=== PATIENT | male | born 1955 | race Caucasian/White ===

== ENCOUNTER 2023-03-24 11:13 | Outpatient (CLI) | payer OTHER, SELFPAY ==
--- NOTE | 2023-03-24 11:39 | ECG_ITS ---
Measurements Intervals [place] Rate: 56 P: 0 OR: 147 QRS: -19 QRSD: 145 T: 7 QT: 423 QTc: 411 Interpretive Statements SINUS BRADYCARDIA RIGHT BUNDLE BRANCH BLOCK BASELINE ARTIFACT- I, II, III, AVR, AVL, AVF ABNORMAL ECG NO PREVIOUS ECG AVAILABLE FOR COMPARISON Electronically Signed On 03-24-2023 11:50:09 FOREPART RASPER by Eugene Pepe D.O.
== END 2023-03-24 11:14 | disposition home or self-care (01) ==
LOC: ANHSURGERY 11:18
PROVIDERS: PCP Family Medicine; Visit Provider Surgery
DX: Z01.812 Encounter for preprocedural laboratory examination (principal); Z01.810 Encounter for preprocedural cardiovascular examination; K40.20 Bilateral inguinal hernia, without obstruction or gangrene, not specified as recurrent; I10 Essential (primary) hypertension; R00.1 Bradycardia, unspecified; I45.10 Unspecified right bundle-branch block
CPT/HCPCS: 36415; 86850; 86900; 86901; 93005

== ENCOUNTER 2023-03-29 01:01 | Day surgery (SDC) | payer OTHER, SELFPAY ==
--- NOTE | 2023-03-24 10:03 | PC.NURSE ---
Report to the Outpatient Waiting Room, entrance under the green pavilion located off [facility], at time __0830 on date __03/29/23 . Planned Procedure Time: _1030 . Time changes happen often and if your time is changed the preop area will call you the afternoon before. - You and your visitor will be asked to self-screen and do not enter if you have any COVID symptoms. - A mask is optional within the hospital at this time. Patients may have clear liquids (water, carbonated beverages, clear teas, apple juice) until 3 hours prior to surgery with a maximum of 20 ounces. - No food from midnight until time of surgery - Infants may have breast milk until 4 hours before surgery, formula 6 hours prior to surgery. - Children will be allowed to drink immediately following surgery. If applicable, please bring a bottle or sippy cup to assist with drinking. Juice, water, soda, and popsicles are readily available. For infants on formula, please bring formula the day of surgery. Pacifiers are allowed. Take the following medications with a SIP of water the morning of surgery: ___METOPROLOL DO NOT STOP ANY OF YOUR OTHER PRESCRIPTION MEDICATIONS PRIOR TO SURGERY ?EXCEPT THE FOLLOWING Medications to discontinue per physician ____ALL VITAMINS 3 DAYS PRE OP.LAST DOSE 03/25/23 Please no make-up, nail algerian, hairspray, perfume, deodorant, or body powder the day of surgery. No jewelry (including any body piercings) or valuables the day of surgery, leave them at home. Please take a shower or bath the night before, or the morning of, surgery with an antibacterial soap. Wear comfortable, loose fitting clothing. Children are encouraged to wear pajamas. - Jewelry must be removed prior to entering the operating room. Rings and piercings that are not removed may be cut off. - The hospital will not accept responsibility for valuables. - Please leave all valuables, including medications, at home the day of surgery. If you are going home after surgery, a licensed regional owner operator truck driver must drive you home. - NO public transportation without another adult if you receive anesthesia. - We recommend that an adult stay with you for 24 hours following discharge. - We also recommend that you do not drive, make important decision, drink alcoholic beverages, or take any drugs that were not prescribed by your health care provider for at least 24 hours after your discharge time. For Pediatric surgeries, we recommend two adults accompany the child home. Follow any additional instructions given to you from your surgeon. If you or anyone in your household have experienced Covid symptoms in the past week, please notify your surgeon or the nurse liaison at the phone number below for possible testing. Telephone instructions given to __PATIENT and asked if any additional questions and then verbalized understanding. Patient advised to call surgeon office or pre surgery nurse liaison [phone] if any additional questions.
[2023-03-24 10:22] VITALS: BMI 32.5
[2023-03-29] VITALS (7 sets, daily range): BP systolic 105–129; BP diastolic 59–79; PULSE 47–61; RESP 10–18; TEMP 36.5–36.7; O2SAT 96–100
[2023-03-29] MEDS: LACTATED RINGERS 1,000 ML 30 ML IV CONT (09:00)
[2023-03-29] MEDS: ACETAMINOPHEN 500 MG TABLET 1000 MG PO (09:15)
[2023-03-29] MEDS: KETOROLAC 15 MG/ML VIAL (*BKC) IV PUSH (09:15)
[2023-03-29] MEDS: SCOPOLAMINE 1.5 MG PATCH TRANSDERM (09:15)
--- NOTE | 2023-03-29 09:31 | WPDHPUPDATE1 ---
History and Physical Update Update Date/Time: 03/29/23 09:31 History and Physical has been reviewed, including an updated exam of the patient. There are NO changes in the patient's condition. Risks, benefits, and alternatives have been discussed and questions answered. Patient agrees to proceed with procedure.
--- NOTE | 2023-03-29 09:31 | PM.IMHP ---
H&P: HPI History of Present Illness Date/Time: 03/29/23 09:31 Chief Complaint: Bilateral inguinal hernia Narrative: This is a 67-year-old man who presents for inguinal hernia repair. He reports no changes since last seen in the office. Review of Systems Review of Systems: All systems reviewed & are unremarkable except as noted in HPI and below Constitutional: Constitutional: Denies chills, Denies fever(s), Denies headache(s) and Denies weight loss Eyes: Eyes: Denies change in vision ENT: Denies dizziness, Denies headache(s), Denies neck mass and Denies throat swelling Cardiovascular: Cardiovascular: Denies chest pain, Denies lightheadedness and Denies dyspnea Respiratory: Respiratory: Denies cough, Denies dyspnea and Denies wheezing Gastrointestinal: Gastrointestinal: Denies abdominal pain, Denies change in bowel habits, Denies nausea and Denies vomiting Genitourinary: Genitourinary: Denies hematuria and Denies dysuria Musculoskeletal: Musculoskeletal: Reports as per HPI Integumentary/Breasts: Skin/Breast: Reports as per HPI Neurologic: Denies dizziness and Denies headache(s) Allergic/Immunologic: Allergic/Immunologic: Denies throat swelling and Denies wheezing [facility] Past Medical History Medical History (Updated 02/14/23 @ 15:06 by Rita Dawson CMA) Essential (primary) hypertension Gout Left inguinal hernia Primary generalized (osteo)arthritis Surgical History Surgical History (Updated 02/14/23 @ 14:53 by Rita Dawson CMA) History of knee surgery Social History Social History (Updated 07/28/22 @ 13:14 by Jasper Nelson MA) Smoking packs per day: 1 Smoking cigarettes per day: 20.0 Years smoked: 25 Smoking pack-years: 25.00 Smoking status: Former smoker Tobacco type: cigarettes Smoking end date: 05/15/18 Alcohol intake: current Drinks per week: 2 Alcohol use details: social Substance use: never Substance use type: does not use Lack of Transportation: No Lack of Food: Never True Current Housing: I Have Housing Concerned About Future Housing: No Difficulty Paying Gas/Electric Bills: No Difficulty Paying for Meds: No Currently Unemployed: No Difficulty w/ Childcare or Family Care: No Living arrangements: with family Occupation/Education: occupation Gender identity (if verbalized by the patient): Male Sexual Orientation (if Verbalized by the Patient): Straight or Heterosexual Spiritual care concerns: No Meds Home Medications and Allergies Home Medications Medication Instructions Recorded Confirmed Type allopurinol 300 mg tablet 300 mg PO DAILY 07/28/22 03/24/23 History lisinopril 20 1 tablet PO DAILY 07/28/22 03/24/23 History mg-hydrochlorothiazide 25 mg tablet metoprolol tartrate 25 mg tablet 25 mg PO BID 07/28/22 03/24/23 History nvfaefeqebrm-esv-arxqt acid-vit 1 tablet PO DAILY 02/02/23 03/24/23 History K-lycop 400 mcg-20 mcg-370 mcg tablet (Men's 50 Plus Multivitamin) Allergies Allergy/AdvReac Type Severity Reaction Status Date / Time No Known Allergies Allergy Verified 03/24/23 09:55 Exam Const: General: no acute distress and alert Orientation/consciousness: patient oriented x3 HENMT: Head: normocephalic and atraumatic Ears: hearing grossly normal bilaterally Face/Nose/Sinus: Normal nares present Mouth: Yes Normal oral and palatal mucosa present Eyes: Periorbital: periorbital findings normal Sclera: sclerae normal EOM: EOMs intact bilaterally Neck: Neck: normal visual inspection, no lymphadenopathy and trachea midline Chest: Chest palpation & inspection: normal inspection of the chest Resp: Effort & Inspection: normal respiratory effort Auscultation: clear to auscultation bilaterally Cardio: Jugular venous distension: no JVD Rate: regular rate Rhythm: regular rhythm Heart sounds: S1 normal heart sound present and S2 normal heart sound present Peripheral pulses: Peripheral p
--- NOTE | 2023-03-29 09:55 | P.PNAN_ITS ---
Anes - Initial Pre Proc Eval Procedure: Operation Date: 03/29/23 10:30 Proposed Procedures p Laparoscopic Bilateral Inguinal Hernia Repair with Mesh, Davinci Assisted - Edy Dang DO Date/Time: 03/29/23 09:55 Surgeon: Edy Dang DO Pre Op Diagnosis: Fabián Ing Hernia Patient Data Age: 67 Gender: M Height: 1.83 m Weight: 108.9 kg Allergies Allergy/AdvReac Type Severity Reaction Status Date / Time No Known Allergies Allergy Verified 03/24/23 09:55 Home Medications Medication Instructions Recorded Confirmed Type allopurinol 300 mg tablet 300 mg PO DAILY 07/28/22 03/24/23 History lisinopril 20 1 tablet PO DAILY 07/28/22 03/24/23 History mg-hydrochlorothiazide 25 mg tablet metoprolol tartrate 25 mg tablet 25 mg PO BID 07/28/22 03/24/23 History llxekedsqqap-pmz-ctfbx acid-vit 1 tablet PO DAILY 02/02/23 03/24/23 History K-lycop 400 mcg-20 mcg-370 mcg tablet (Men's 50 Plus Multivitamin) Patient hx anesthesia problems: post op nausea/vomiting Family hx anesthesia problems: none Results Review: All pre-operative results and documents have been reviewed as part of the pre- operative evaluation. [facility] Past Medical History Medical History (Updated 02/14/23 @ 15:06 by Rita Dawson CMA) Essential (primary) hypertension Gout Left inguinal hernia Primary generalized (osteo)arthritis Surgical History Surgical History (Updated 02/14/23 @ 14:53 by Rita Dawson CMA) History of knee surgery Social History Social History (Updated 07/28/22 @ 13:14 by Jasper Nelson MA) Smoking packs per day: 1 Smoking cigarettes per day: 20.0 Years smoked: 25 Smoking pack-years: 25.00 Smoking status: Former smoker Tobacco type: cigarettes Smoking end date: 05/15/18 Alcohol intake: current Drinks per week: 2 Alcohol use details: social Substance use: never Substance use type: does not use Lack of Transportation: No Lack of Food: Never True Current Housing: I Have Housing Concerned About Future Housing: No Difficulty Paying Gas/Electric Bills: No Difficulty Paying for Meds: No Currently Unemployed: No Difficulty w/ Childcare or Family Care: No Living arrangements: with family Occupation/Education: occupation Gender identity (if verbalized by the patient): Male Sexual Orientation (if Verbalized by the Patient): Straight or Heterosexual Spiritual care concerns: No Anes - Eval Final PreProcedure Day of Procedure 03/29/23 09:55 Patient weight: obese Heart: regular rate and rhythm Lungs: clear to auscultation Airway: Mallampati scale class III Neurological: alert and oriented Last oral intake: >/= 8 hours ASA classification: III Emergent: no Anesthetic plan: proceed Anesthesia type and monitoring: general ETT and standard monitoring Results Review: All pre-operative results and documents have been reviewed as part of the pre- operative evaluation. Informed Consent: The patient's anesthetic plan and its attendant risks and benefits were discussed with the patient/family/POA. Questions were solicited and answers provided to the satisfaction of the patient/family/POA.
[2023-03-29] MEDS: ceFAZolin 2 GM/D5W 50 ML 2 GM/50 ML BAG IVPB (10:01)
[2023-03-29] MEDS: BUPIVACAINE/EPINEPHRINE 0.5% 50 ML VIAL 30 ML INFILTRATE (10:43)
--- NOTE | 2023-03-29 11:32 | W.PM.PROC2 ---
Procedure Note - Detailed Date of Procedure 03/29/23 Pre-op Diagnosis Bilateral inguinal hernia Post-op Diagnosis Same (Bilateral direct inguinal hernia) Procedure Performed Laparoscopic bilateral inguinal hernia repair with mesh, da Luis Eduardo assisted Surgeon Edy Dang DO Anesthesia General and Local (0.5% bupivacaine with epinephrine) Indications This is a 67-year-old man who presented with a left groin bulge and left groin pain with activity. The bulge has been present for several years but has recently become larger and more symptomatic. On exam he was found to have bilateral inguinal hernias with the hernia on the left larger than the right. Discussions were made with the patient about treatment options and decision was made to proceed with robotic assisted laparoscopic hernia repair with mesh. Findings Laparoscopic bilateral inguinal hernia repair was performed. The patient was found to have bilateral direct inguinal hernias. The left inguinal hernia was slightly larger than the right. A robotic transabdominal preperitoneal approach was utilized for repair. Extra-large Bard 3DMax mid mesh was placed overlying each myopectineal orifice. No specimens were obtained for pathology. Description of Procedure Procedure as well as risks, benefits, and alternatives were discussed with the patient. Written consent was obtained and placed in chart prior to procedure. Patient was brought back to surgical suite. He was placed supine on operating table. Time-out was done to confirm patient and procedure. He was then intubated by Anesthesia Department. His abdomen was prepped and draped in sterile fashion using chlorhexidine prep. 0.5% bupivacaine with epinephrine was infiltrated at each location for incision. An 8 mm incision was made in the left lateral abdomen, and a 5 mm Optiview trocar was advanced through the abdominal layers under direct visualization. Once inside the abdominal cavity, carbon dioxide insufflation was used to create a pneumoperitoneum. A camera was inserted and the abdominal cavity was inspected. The patient was placed in slight Trendelenburg position. An 8 millimeter incision was made on the right lateral abdomen and an 8 millimeter trocar was inserted under direct visualization. Another 8 millimeter incision was made just superior to the umbilicus and an 8 millimeter trocar was inserted under direct visualization. The 5 mm port was then removed and this was replaced with another 8 mm robotic port. The robotic arms were brought up to the patient's bedside and secured to the ports. The camera and instruments were inserted. I then moved over to the robotic console and took control of the camera and instruments. After careful inspection of the abdominal cavity, I began scoring the peritoneum along the left lower quadrant using scissors with electrocautery. The preperitoneal plane was entered and this was carefully dissected caudally along the inferior epigastric vessels. Careful dissection with scissors with electrocautery and blunt dissection was used to continue this dissection. I dissected far enough laterally to allow for mesh placement, and also dissected medially to identify the pubic arch and Jhoan's ligament. The hernia sac was identified and carefully dissected posteriorly. The cord contents were also identified and the peritoneum was carefully dissected far enough posteriorly to allow for mesh placement. Once an adequate pocket was created, I then placed the mesh within the preperitoneal pocket and carefully unfolded it. The mesh was centered on the hernia defect with adequate overlap circumferentially. The inferior edge of the mesh was inspected to ensure that it was far enough away from the peritoneal edge. The mesh appeared in proper position overlying the entire myopectineal orifice. The mesh was secured using 3-0 Vicryl simple interrupted sutures in Jhoan's ligament, the superior medial edge, and superior lateral
[2023-03-29] MEDS: oxyCODONE HCL (*CRX) 5 MG TAB IR PO (12:47)
== END 2023-03-29 13:24 | disposition home or self-care (01) ==
PROVIDERS: PCP Family Medicine; Visit Provider Surgery
PROC: 8E0Y4CZ Robotic Assisted Procedure of Lower Extremity, Percutaneous Endoscopic Approach (ICD-10-PCS; CPT 49650; principal; 2023-03-29 10:30)
DX: K40.20 Bilateral inguinal hernia, without obstruction or gangrene, not specified as recurrent (principal); I10 Essential (primary) hypertension; M10.9 Gout, unspecified; E66.9 Obesity, unspecified; Z68.33 Body mass index [BMI] 33.0-33.9, adult; Z87.891 Personal history of nicotine dependence
CPT/HCPCS: 49650; S2900; 36415; 86850; 86900; 86901; 93005; A9270; C1781; J0330; J0690; J1100; J1170; J1885; J2250; J2405; J2704; J3010; J7120

== ENCOUNTER 2023-09-28 07:00 | Outpatient (NON) | payer OTHER, SELFPAY | END 2023-09-28 07:01 | disposition home or self-care (01) | LOC: ANHLAB 09-29 07:23 | PROVIDERS: PCP Family Medicine; Visit Provider Internal Medicine Gastroenterology | DX: R19.5 Other fecal abnormalities (principal); D12.8 Benign neoplasm of rectum; K63.5 Polyp of colon | CPT/HCPCS: 88305 ==

== ENCOUNTER 2023-09-28 08:35 | Day surgery (SDC) | payer OTHER, SELFPAY ==
[2023-09-07 07:37] VITALS: BMI 34.3
[2023-09-07 14:02] VITALS: BMI 31.2
[2023-09-11 13:51] VITALS: BMI 31.2
[2023-09-28 10:04] VITALS: BP 131/80; PULSE 58; RESP 18; TEMP 36.9; O2SAT 98; BMI 31.4
--- NOTE | 2023-09-28 10:08 | WPDANESEPPF ---
Anes - Initial Pre Proc Eval Procedure: Operation Date: 09/28/23 11:00 Proposed Procedures p Diagnostic Colonoscopy - Daniel Gao MD Date/Time: 09/28/23 10:08 Surgeon: Daniel Gao MD Pre Op Diagnosis: Other Fecal Abnormalities Patient Data Age: 67 Gender: M Height: 1.83 m Weight: 105 kg Last Vital Signs Temp 36.9 C 09/28/23 10:04 Pulse 58 L 09/28/23 10:04 Resp 18 09/28/23 10:04 BP 131/80 09/28/23 10:04 Pulse Ox 98 09/28/23 10:04 Allergies Allergy/AdvReac Type Severity Reaction Status Date / Time No Known Allergies Allergy Verified 09/28/23 09:55 Home Medications Medication Instructions Recorded Confirmed Type allopurinol 300 mg tablet 300 mg PO DAILY 07/28/22 09/28/23 History metoprolol tartrate 25 mg tablet 25 mg PO BID 07/28/22 09/28/23 History voxzxfgtvmwh-lsp-sskbk acid-vit 1 tablet PO DAILY 02/02/23 09/28/23 History K-lycop 400 mcg-20 mcg-370 mcg tablet (Men's 50 Plus Multivitamin) lisinopril 20 See Rx Instructions .Route 07/19/23 09/28/23 Rx mg-hydrochlorothiazide 25 mg tablet .COMPLEX #90 tabs Patient hx anesthesia problems: none Family hx anesthesia problems: none Results Review: All pre-operative results and documents have been reviewed as part of the pre-operative evaluation. [facility] Past Medical History Medical History Essential (primary) hypertension Gout Hypertriglyceridemia Primary generalized (osteo)arthritis Surgical History Surgical History History of knee surgery Hx of bilateral inguinal hernia repair Laparoscopic bilateral inguinal hernia repair with mesh, da Luis Eduardo assisted on 03/29/23 Social History Social History Smoking packs per day: 1 Smoking cigarettes per day: 20.0 Years smoked: 25 Smoking pack-years: 25.00 Smoking status: Former smoker Tobacco type: cigarettes Smoking end date: 01/01/19 Alcohol intake: current Drinks per week: 2 Alcohol use details: SOCIALLY Substance use: never Substance use type: does not use Lack of Transportation: No Lack of Food: Never True Current Housing: I Have Housing Concerned About Future Housing: No Difficulty Paying Gas/Electric Bills: No Difficulty Paying for Meds: No Currently Unemployed: No Difficulty w/ Childcare or Family Care: No Living arrangements: with family Occupation/Education: occupation Gender identity (if verbalized by the patient): Male Sexual Orientation (if Verbalized by the Patient): Straight or Heterosexual Spiritual care concerns: No Anes - Eval Final PreProcedure Day of Procedure 09/28/23 10:08 Patient weight: obese Heart: regular rate and rhythm Lungs: clear to auscultation Airway: Mallampati scale class II Neurological: alert and oriented Last oral intake: >/= 8 hours ASA classification: II Emergent: no Anesthetic plan: proceed Anesthesia type and monitoring: general GIVS and standard monitoring Results Review: All pre-operative results and documents have been reviewed as part of the pre-operative evaluation. Informed Consent: The patient's anesthetic plan and its attendant risks and benefits were discussed with the patient/family/POA. Questions were solicited and answers provided to the satisfaction of the patient/family/POA.
[2023-09-28] MEDS: LACTATED RINGERS 1,000 ML 150 ML IV CONT (10:21)
--- NOTE | 2023-09-28 10:46 | PM.HPGS ---
History of Present Illness History of Present Illness Consent: Risks, benefits, and alternatives have been discussed and questions answered. Patient agrees to proceed with procedure. Chief complaint: Positive Cologuard test Narrative: James Amaro is a 67 year old male referred for colonoscopy. Patient recently had a positive Cologuard test. Patient's current weight appetite are normal. He denies abdominal pain. He has had no bleeding. Family history is noncontributory. Review of Systems Review of Systems: All systems reviewed & are unremarkable except as noted in HPI and below PMFSH Past Medical History Medical History Essential (primary) hypertension Gout Hypertriglyceridemia Primary generalized (osteo)arthritis Surgical History Surgical History History of knee surgery Hx of bilateral inguinal hernia repair Laparoscopic bilateral inguinal hernia repair with mesh, da Luis Eduardo assisted on 03/29/23 Social History Social History Smoking packs per day: 1 Smoking cigarettes per day: 20.0 Years smoked: 25 Smoking pack-years: 25.00 Smoking status: Former smoker Tobacco type: cigarettes Smoking end date: 05/15/18 Alcohol intake: current Drinks per week: 2 Alcohol use details: SOCIALLY Substance use: never Substance use type: does not use Lack of Transportation: No Lack of Food: Never True Current Housing: I Have Housing Concerned About Future Housing: No Difficulty Paying Gas/Electric Bills: No Difficulty Paying for Meds: No Currently Unemployed: No Difficulty w/ Childcare or Family Care: No Living arrangements: with family Occupation/Education: occupation Gender identity (if verbalized by the patient): Male Sexual Orientation (if Verbalized by the Patient): Straight or Heterosexual Spiritual care concerns: No Meds Home Medications and Allergies Home Medications Medication Instructions Recorded Confirmed Type allopurinol 300 mg tablet 300 mg PO DAILY 07/28/22 09/28/23 History metoprolol tartrate 25 mg tablet 25 mg PO BID 07/28/22 09/28/23 History kdiagoyaygpg-bly-amefd acid-vit 1 tablet PO DAILY 02/02/23 09/28/23 History K-lycop 400 mcg-20 mcg-370 mcg tablet (Men's 50 Plus Multivitamin) lisinopril 20 See Rx Instructions .Route 07/19/23 09/28/23 Rx mg-hydrochlorothiazide 25 mg tablet .COMPLEX #90 tabs Allergies Allergy/AdvReac Type Severity Reaction Status Date / Time No Known Allergies Allergy Verified 09/28/23 09:55 Vital Signs Vital Signs - 24 hr 09/28/23 10:04 Temperature 98.4 F Pulse Rate 58 L Respiratory Rate 18 Blood Pressure 131/80 Pulse Oximetry 98 Exam Narrative: Physical exam reveals patient to be alert. Vital signs stable. HEENT exam is unremarkable. Is anicteric. Lungs are clear to auscultation and percussion is without murmur or extra sounds. Abdomen bowel sounds are present soft nontender with no organomegaly. Digital external rectal exam normal. Assessment and Plan Assessment and plan (1) Positive colorectal cancer screening using Cologuard test: Code(s): R19.5 - Other fecal abnormalities Status: Acute Assessment and Plan: Patient to have colonoscopy today because of positive Cologuard test recently.
[2023-09-28 11:17] VITALS: BP 107/67; PULSE 56; RESP 15; O2SAT 98
[2023-09-28 11:25] VITALS: BP 118/67; PULSE 52; RESP 15; O2SAT 97
--- NOTE | 2023-09-28 11:27 | WPDANESPN ---
Anes - Prog Note Post-Op Date/Time: 09/28/23 11:27 Cardiovascular status: normal Respiratory status: normal Airway patency: baseline Mental status: baseline Post-Op hydration status: normal Vital Signs: Last Vital Signs Temp 36.9 C 09/28/23 10:04 Pulse 56 L 09/28/23 11:17 Resp 15 09/28/23 11:17 BP 107/67 09/28/23 11:17 Pulse Ox 98 09/28/23 11:17 O2 Del Method Room Air 09/28/23 11:17 Pain Score (VAS): 0 I/O: Intake & Output 09/27/23 09/28/23 09/28/23 23:59 07:59 15:59 Intake Total 300 Balance 300 Patient Feedback: Patient satisfied with anesthetic care.
[2023-09-28 11:35] VITALS: BP 115/61; PULSE 53; RESP 14; O2SAT 99
== END 2023-09-28 11:44 | disposition home or self-care (01) ==
PROVIDERS: PCP Family Medicine; Referring Provider Family Medicine; Visit Provider Internal Medicine Gastroenterology
PROC: 0DJD8ZZ Inspection of Lower Intestinal Tract, Via Natural or Artificial Opening Endoscopic (ICD-10-PCS; CPT 45378; principal; 2023-09-28 11:00)
DX: R19.5 Other fecal abnormalities (principal); D12.5 Benign neoplasm of sigmoid colon; D12.8 Benign neoplasm of rectum; K57.30 Diverticulosis of large intestine without perforation or abscess without bleeding; K64.8 Other hemorrhoids
CPT/HCPCS: 45385

== ENCOUNTER 2024-04-17 10:56 | Outpatient (CLI) | payer OTHER, SELFPAY ==
--- NOTE | ~2024-04-17 | XR_ITS ---
Right ankle Technique: AP and lateral views were obtained. Clinical History: Pain Findings: No acute fracture or dislocation is seen. Osseous alignment is anatomic. Ankle mortise and other visualized joint spaces are preserved. Soft tissues are otherwise unremarkable. Impression: Unremarkable right ankle. Reviewed, dictated and finalized at location . [employer] Impression: Unremarkable right ankle.
== END 2024-04-17 10:57 | disposition home or self-care (01) ==
LOC: MICIMG 10:58
PROVIDERS: PCP Family Medicine; Visit Provider Family Medicine
DX: M25.571 Pain in right ankle and joints of right foot (principal)
CPT/HCPCS: 73600

== ENCOUNTER 2024-09-09 20:56 | Day surgery (SDC) | payer OTHER, SELFPAY ==
--- NOTE | ~2024-09-09 | XR_ITS ---
Clinical Indication: Food bolus PA view of the chest: Comparison: 12/17/2007 Findings: The lungs are clear, without evidence of focal consolidation or pleural effusion. Cardiome diastinal silhouette is within normal limits. Bones and soft tissues are unremarkable. Impression: Clear lungs. Reviewed, dictated and finalized at location . Impression: Clear lungs.
[2024-09-09 21:05] VITALS: BP 147/86; PULSE 73; RESP 18; TEMP 36.3; O2SAT 96
[2024-09-10] VITALS (15 sets, daily range): BP systolic 115–148; BP diastolic 62–88; PULSE 73–90; RESP 14–26; TEMP 36.3–37.2; O2SAT 95–100; BMI 30.9
[2024-09-10] MEDS: NITROGLYCERIN SL 0.4 MG TABLET SUBLINGUAL (02:52)
[2024-09-10] MEDS: ONDANSETRON INJ 4 MG/2 ML VIAL 8 MG IV PUSH (02:52)
[2024-09-10] MEDS: GLUCAGON FOR INJ 1 MG VIAL IM (03:19)
[2024-09-10 03:44] LABS: Glucose Point of Care 173 mg/dl (65-105)
--- NOTE | 2024-09-10 03:44 | ED.SKABFB ---
HPI - Skin/Abscess/Foreign Bdy General Chief complaint: Skin/Abscess/Foreign Body Stated complaint: pork steak food bolus Time Seen by Provider: 09/10/24 01:52 History of Present Illness HPI narrative: 68-year-old male presenting to the emergency department with complaint of food bolus impaction. Patient states he was eating barbecue last night when he felt something get stuck in his throat. He has been nauseous and vomiting continuously since. Not able to tolerate any intake as he feels like he is regurgitating immediately. No chest pain, abdominal pain, back pain. No fever chills. Endorses indigestion symptoms. No history of esophageal strictures or cancer or any kind of GERD aside from occasional reflux. Was otherwise in his normal state of health. Related Data Home Medications ?Medication ?Instructions ?Recorded ?Confirmed ?Last Taken ?Type jomgznasvnck-pwy-kkipe acid-vit 1 tablet PO DAILY 02/02/23 08/30/24 09/25/23 History K-lycop 400 mcg-20 mcg-370 mcg tablet (Men's 50 Plus Multivitamin) melatonin 5 mg chewable tablet 5 mg PO DAILY 08/30/24 08/30/24 Unknown History Allergies Allergy/AdvReac Type Severity Reaction Status Date / Time No Known Allergies Allergy Verified 09/09/24 21:10 Review of Systems Review of Systems: As reviewed above in HPI [facility] Past Medical History Medical History Personal history of colonic polyps Hypertriglyceridemia Primary generalized (osteo)arthritis Gout Essential (primary) hypertension Surgical History Surgical History Hx of bilateral inguinal hernia repair Laparoscopic bilateral inguinal hernia repair with mesh, da Luis Eduardo assisted on 03/29/23 History of knee surgery Social History Social History Smoking packs per day: 1 Smoking cigarettes per day: 20.0 Years smoked: 25 Smoking pack-years: 25.00 Smoking status: Former smoker Tobacco type: cigarettes Smoking end date: 05/09/18 Alcohol intake: current Drinks per week: 2 Alcohol use details: SOCIALLY Substance use: never Substance use type: does not use Do You Feel Safe in your Home?: Yes Lack of Transportation: No Lack of Food: Never True Current Housing: I Have Housing Concerned About Future Housing: No Difficulty Paying Gas/Electric Bills: No Difficulty Paying for Meds: No Currently Unemployed: No Difficulty w/ Childcare or Family Care: No Living arrangements: with family Occupation/Education: occupation Gender identity (if verbalized by the patient): Male Sexual Orientation (if Verbalized by the Patient): Straight or Heterosexual Spiritual care concerns: No Exam Narrative: GENERAL: Uncomfortable appearing and retching, answering questions and tolerating secretions HEAD: [Normocephalic, atraumatic.] EYES: [PERRLA and EOMI.] ENT: Nares clear, no rhinorrhea or epistaxis. Mucous membranes moist. NECK: Supple. CHEST: [Clear to auscultation. No respiratory distress.] HEART: [Regular rate and rhythm]. No murmur heard. [Normal peripheral pulses.] ABDOMEN: [Soft, nondistended], [nontender], [No rigidity or guarding] EXTREMITIES: Normal range of motion. [No edema.] SKIN: Warm, dry, no rash. NEURO: [No focal deficits]. Alert and oriented [x3.] PSYCH: [Normal mood and affect.] Course Vital Signs Vital signs: Vital Signs Temperature 36.3 C L 09/09/24 21:05 Pulse Rate 73 09/09/24 21:05 Respiratory Rate 18 09/09/24 21:05 Blood Pressure 147/86 H 09/09/24 21:05 Pulse Oximetry 96 09/09/24 21:05 Oxygen Delivery Room Air 09/09/24 21:05 Temperature 37.2 C 09/10/24 00:34 Pulse Rate 76 09/10/24 06:40 Respiratory Rate 22 H 09/10/24 06:40 Blood Pressure 128/77 09/10/24 06:40 Pulse Oximetry 95 09/10/24 06:40 Oxygen Delivery Room Air 09/09/24 21:05 MDM - Skin/Abscess/Foreign Bdy MDM Narrative Medical decision making narrative: 68-year-old male presenting with suspected food bolus impaction. He is otherwise well-appearing but is uncomfortable from suspected food stuck in his esophagus. He has normal vital signs, no tachycardia, fever, tachypnea. Clear breath sounds throughout. He endorses feeling like he choked on steak earlier this afternoon in the evening when he was barbecuing. Endorses vomiting several times specially quickly after trying to take any steps water. Clinically he has signs and symptoms of food bolus impaction. Upright chest x-ray was obtained which I independently reviewed and showed no acute concerns such as free air or pneumothorax. He was given a combination medications to try for symptom control including intramuscular glucagon, Zofran pre treatment, nitroglycerin solution ingestion. Patient re-evaluated after interventions and had no significant interval change. Still feeling very nauseous and tried take a sip water and immediately regurgitated it. Spoke to the on-call GI Dr. Bhatia who states that he is having an emergency at this time and cannot come to the ER. Attempting to reach out to his colleague Dr. Darby for endoscopy. Spoke to Dr. Darby who has agreed to come in and take the patient endoscopy suite. Patient will be taken from ER to endoscopy suite and likely discharged after procedure. Patient made aware of the plan and comfortable at bedside at this time. Medical Records Attestation: I reviewed the patient's medical records. Lab Data Attestation: I reviewed the patient's lab results. Labs: Lab Results 09/10/24 Range/Units 03:42 POC Capillary Glucose 173 H (65-105) mg/dl Imaging Data Attestation: I personally reviewed and interpreted this imaging study as follows: My impression: Impressions Chest X-Ray 09/10/24 06:05 Impression: Clear lungs. Discharge Plan Discharge Clinical Impression: Food impaction of esophagus Patient Disposition: Still a Patient Condition: Stable Time of Disposition: 06:49
[2024-09-10] MEDS: LACTATED RINGERS 1,000 ML 150 ML IV CONT (07:52)
--- NOTE | 2024-09-10 08:09 | P.PNAN_ITS ---
Anes - Initial Pre Proc Eval Procedure: Operation Date: 09/10/24 14:00 Proposed Procedures p Esophagogastroduodenoscopy - Thien Diamond MD Date/Time: 09/10/24 08:09 Surgeon: Thien Diamond MD Pre Op Diagnosis: pork steak food bolus Patient Data Age: 68 Gender: M Height: 1.83 m Weight: 103.5 kg Last Vital Signs Temp 97.3 F L 09/10/24 07:46 Pulse 73 09/10/24 07:46 Resp 20 09/10/24 07:46 BP 147/73 H 09/10/24 07:46 Pulse Ox 95 09/10/24 07:46 O2 Del Method Room Air 09/10/24 07:46 Allergies Allergy/AdvReac Type Severity Reaction Status Date / Time No Known Allergies Allergy Verified 09/10/24 07:40 Home Medications ?Medication ?Instructions ?Recorded ?Confirmed ?Type lwvhgqzqyxdq-sht-gohts acid-vit 1 tablet PO DAILY 02/02/23 09/10/24 History K-lycop 400 mcg-20 mcg-370 mcg tablet (Men's 50 Plus Multivitamin) allopurinol 300 mg tablet 450 mg (1.5 x 300 mg) PO DAILY 06/19/24 09/10/24 Rx #135 tabs lisinopril 20 See Rx Instructions .Route 07/07/24 09/10/24 Rx mg-hydrochlorothiazide 25 mg tablet .COMPLEX #90 tabs colchicine 0.6 mg tablet 0.6 mg PO DAILY #90 tabs 08/30/24 09/10/24 Rx melatonin 5 mg chewable tablet 5 mg PO DAILY 08/30/24 09/10/24 History metoprolol tartrate 25 mg tablet 25 mg PO BID #180 tabs 08/30/24 09/10/24 Rx rosuvastatin 10 mg tablet 10 mg PO DAILY #100 tabs 09/03/24 09/10/24 Rx Laboratory Tests 09/10/24 03:42 POC Capillary Glucose 173 H mg/dl (65-105) Patient hx anesthesia problems: none Family hx anesthesia problems: none Results Review: All pre-operative results and documents have been reviewed as part of the pre- operative evaluation. [facility] Past Medical History Medical History Personal history of colonic polyps Hypertriglyceridemia Primary generalized (osteo)arthritis Gout Essential (primary) hypertension Surgical History Surgical History Hx of bilateral inguinal hernia repair Laparoscopic bilateral inguinal hernia repair with mesh, da Luis Eduardo assisted on 03/29/23 History of knee surgery Social History Social History Smoking packs per day: 1 Smoking cigarettes per day: 20.0 Years smoked: 25 Smoking pack-years: 25.00 Smoking status: Former smoker Tobacco type: cigarettes Smoking end date: 05/09/18 Alcohol intake: current Drinks per week: 2 Alcohol use details: SOCIALLY Substance use: never Substance use type: does not use Do You Feel Safe in your Home?: Yes Lack of Transportation: No Lack of Food: Never True Current Housing: I Have Housing Concerned About Future Housing: No Difficulty Paying Gas/Electric Bills: No Difficulty Paying for Meds: No Currently Unemployed: No Difficulty w/ Childcare or Family Care: No Living arrangements: with family Occupation/Education: occupation Gender identity (if verbalized by the patient): Male Sexual Orientation (if Verbalized by the Patient): Straight or Heterosexual Spiritual care concerns: No Anes - Eval Final PreProcedure Day of Procedure 09/10/24 08:09 Patient weight: obese Heart: regular rate and rhythm Lungs: clear to auscultation Airway: Mallampati scale class III Neurological: alert and oriented Last oral intake: >/= 8 hours ASA classification: III Emergent: no Anesthetic plan: proceed Anesthesia type and monitoring: general ETT (RSI) and standard monitoring Results Review: All pre-operative results and documents have been reviewed as part of the pre- operative evaluation. Informed Consent: The patient's anesthetic plan and its attendant risks and benefits were discussed with the patient/family/POA. Questions were solicited and answers provided to the satisfaction of the patient/family/POA.
--- NOTE | 2024-09-10 08:11 | PM.HPGS ---
History of Present Illness History of Present Illness Consent: Risks, benefits, and alternatives have been discussed and questions answered. Patient agrees to proceed with procedure. Chief complaint: pork steak food bolus Narrative: James Amaro is a 68 year old male here with food bolus after had pork steak yesterday for dinner, never had similar problem or EGD, he is not taking ppi. Review of Systems Review of Systems: All systems reviewed & are unremarkable except as noted in HPI and below PMFSH Past Medical History Medical History Personal history of colonic polyps Hypertriglyceridemia Primary generalized (osteo)arthritis Gout Essential (primary) hypertension Surgical History Surgical History Hx of bilateral inguinal hernia repair Laparoscopic bilateral inguinal hernia repair with mesh, da Luis Eduardo assisted on 03/29/23 History of knee surgery Social History Social History Smoking packs per day: 1 Smoking cigarettes per day: 20.0 Years smoked: 25 Smoking pack-years: 25.00 Smoking status: Former smoker Tobacco type: cigarettes Smoking end date: 05/09/18 Alcohol intake: current Drinks per week: 2 Alcohol use details: SOCIALLY Substance use: never Substance use type: does not use Do You Feel Safe in your Home?: Yes Lack of Transportation: No Lack of Food: Never True Current Housing: I Have Housing Concerned About Future Housing: No Difficulty Paying Gas/Electric Bills: No Difficulty Paying for Meds: No Currently Unemployed: No Difficulty w/ Childcare or Family Care: No Living arrangements: with family Occupation/Education: occupation Gender identity (if verbalized by the patient): Male Sexual Orientation (if Verbalized by the Patient): Straight or Heterosexual Spiritual care concerns: No Meds Home Medications and Allergies Home Medications ?Medication ?Instructions ?Recorded ?Confirmed ?Type twoicgznubqz-sqr-zinal acid-vit 1 tablet PO DAILY 02/02/23 09/10/24 History K-lycop 400 mcg-20 mcg-370 mcg tablet (Men's 50 Plus Multivitamin) allopurinol 300 mg tablet 450 mg (1.5 x 300 mg) PO DAILY 06/19/24 09/10/24 Rx #135 tabs lisinopril 20 See Rx Instructions .Route 07/07/24 09/10/24 Rx mg-hydrochlorothiazide 25 mg tablet .COMPLEX #90 tabs colchicine 0.6 mg tablet 0.6 mg PO DAILY #90 tabs 08/30/24 09/10/24 Rx melatonin 5 mg chewable tablet 5 mg PO DAILY 08/30/24 09/10/24 History metoprolol tartrate 25 mg tablet 25 mg PO BID #180 tabs 08/30/24 09/10/24 Rx rosuvastatin 10 mg tablet 10 mg PO DAILY #100 tabs 09/03/24 09/10/24 Rx Allergies Allergy/AdvReac Type Severity Reaction Status Date / Time No Known Allergies Allergy Verified 09/10/24 07:40 Vital Signs Vital Signs - 24 hr 09/09/24 21:05 09/10/24 00:34 09/10/24 01:30 Temperature 97.4 F L 99 F Pulse Rate 73 75 76 Respiratory Rate 18 15 17 Blood Pressure 147/86 H 142/88 H 141/79 H Pulse Oximetry 96 96 96 Oxygen Delivery Room Air 09/10/24 02:49 09/10/24 03:30 09/10/24 04:00 Temperature Pulse Rate 73 76 80 Respiratory Rate 14 14 14 Blood Pressure 148/80 H 129/62 148/72 H Pulse Oximetry 96 96 97 Oxygen Delivery 09/10/24 05:15 09/10/24 06:40 09/10/24 07:46 Temperature 97.3 F L Pulse Rate 79 76 73 Respiratory Rate 20 22 H 20 Blood Pressure 148/72 H 128/77 147/73 H Pulse Oximetry 96 95 95 Oxygen Delivery Room Air Exam Const: General: comfortable and no acute distress Other: he is spitting saliva HENMT: Face/Nose/Sinus: Normal nares present Eyes: General: appearance normal, both eyes and all related structures Neck: Neck: no JVD Resp: Auscultation: clear to auscultation bilaterally Cardio: Rate: regular rate Rhythm: regular rhythm GI: Inspection: non-distended GI Palp: Yes Soft to palpation Skin: General skin exam: normal color Neuro: Speech: normal speech Extrem: General: normal to inspection Psych: Mental Status: mental status grossly normal Assessment and Plan Assessment and plan (1) Food impaction of esophagus: Code(s): T18.128A - Food in esophagus causing other injury, initial encounter; W44.F3XA - Food entering into or through a natural orifice, initial encounter Status: Acute Assessment and Plan: urgent egd to remove food bolus
== END 2024-09-10 09:59 | disposition home or self-care (01) ==
LOC: ANHED 09-10 02:33 → ANHENDO 09-10 05:59
PROVIDERS: Emergency Provider Student in an Organized Health Care Education/Training Program; Visit Provider Internal Medicine Gastroenterology
PROC: 0DJ08ZZ Inspection of Upper Intestinal Tract, Via Natural or Artificial Opening Endoscopic (ICD-10-PCS; CPT 43247; principal; 2024-09-10 14:00)
DX: T18.128A Food in esophagus causing other injury, initial encounter (principal); K22.2 Esophageal obstruction; K21.9 Gastro-esophageal reflux disease without esophagitis; K29.70 Gastritis, unspecified, without bleeding; I10 Essential (primary) hypertension; E78.1 Pure hyperglyceridemia; M15.0 Primary generalized (osteo)arthritis; W44.F3XA Food entering into or through a natural orifice, initial encounter; E66.9 Obesity, unspecified; Z68.30 Body mass index [BMI] 30.0-30.9, adult; Z98.890 Other specified postprocedural states; Z86.0100 Personal history of colon polyps, unspecified; Z87.891 Personal history of nicotine dependence
CPT/HCPCS: 43247; 43239; 71045; 82948; 88305; 96372; 96374; 96375; 96376; 99285; A9270; J0330; J1100; J1610; J2003; J2405; J2704; J7120

== ENCOUNTER 2024-09-19 08:19 | Outpatient (CLI) | payer OTHER, SELFPAY ==
--- NOTE | ~2024-09-19 | US_ITS ---
EXAMINATION: US aorta DATE: 09/19/2024 13:06 CDT INDICATION: Screening for cardiovascular disease. Hypertension. High cholesterol. Myocardial infarcti on. TECHNIQUE: Grayscale, color Doppler, and pulsed Doppler images of the aorta and common iliac arteries were obtained. COMPARISON: No prior studies for comparison. FINDINGS: The proximal aorta measures 2.8 cm greatest sagittal dimension. The mid aorta measures 1.2 cm greates t sagittal dimension. The distal aorta measures 1.2 cm greatest sagittal dimension. The right common internal iliac artery measures 1.1 cm. The left common iliac artery measures 1.4 cm. IMPRESSION: 1. Normal caliber aorta without evidence for aneurysm. Reviewed, dictated and finalized at location A.
== END 2024-09-19 08:20 | disposition home or self-care (01) ==
PROVIDERS: PCP Family Medicine; Visit Provider Family Medicine
DX: Z13.6 Encounter for screening for cardiovascular disorders (principal)
CPT/HCPCS: 76775

== ENCOUNTER 2024-11-28 01:03 | Day surgery (SDC) | payer OTHER, SELFPAY ==
[2024-11-14 10:51] VITALS: BMI 29.9
[2024-11-28 10:38] VITALS: BP 138/79; PULSE 61; RESP 18; TEMP 36.7; O2SAT 95; BMI 31.0
[2024-11-28] MEDS: LACTATED RINGERS 1,000 ML 150 ML IV CONT (10:56)
--- NOTE | 2024-11-28 11:19 | WPDANESEPPF ---
Anes - Initial Pre Proc Eval Procedure: Operation Date: 11/28/24 14:00 Proposed Procedures p Esophagogastroduodenoscopy - Thien Diamond MD Date/Time: 11/28/24 11:19 Surgeon: Thien Diamond MD Pre Op Diagnosis: Esophageal obstruction Patient Data Age: 68 Gender: M Height: 1.83 m Weight: 103.7 kg Last Vital Signs Temp 98.1 F 11/28/24 10:38 Pulse 61 11/28/24 10:38 Resp 18 11/28/24 10:38 BP 138/79 11/28/24 10:38 Pulse Ox 95 11/28/24 10:38 O2 Del Method Room Air 11/28/24 10:38 Allergies Allergy/AdvReac Type Severity Reaction Status Date / Time No Known Allergies Allergy Verified 11/28/24 10:37 Home Medications ?Medication ?Instructions ?Recorded ?Confirmed ?Type rsqmsnnpakkn-puy-bwlud acid-vit 1 tablet PO DAILY 02/02/23 11/28/24 History K-lycop 400 mcg-20 mcg-370 mcg tablet (Men's 50 Plus Multivitamin) allopurinol 300 mg tablet 450 mg (1.5 x 300 mg) PO DAILY 06/19/24 11/28/24 Rx #135 tabs colchicine 0.6 mg tablet 0.6 mg PO DAILY #90 tabs 08/30/24 11/28/24 Rx melatonin 5 mg chewable tablet 10 mg PO HS PRN sleep 08/30/24 11/14/24 History metoprolol tartrate 25 mg tablet 25 mg PO BID #180 tabs 08/30/24 11/28/24 Rx rosuvastatin 10 mg tablet 10 mg PO DAILY #100 tabs 09/03/24 11/28/24 Rx lisinopril 20 See Rx Instructions .Route 10/28/24 11/28/24 Rx mg-hydrochlorothiazide 25 mg tablet .COMPLEX #90 tabs Patient hx anesthesia problems: none Family hx anesthesia problems: none Results Review: All pre-operative results and documents have been reviewed as part of the pre-operative evaluation. [facility] Past Medical History Medical History Personal history of colonic polyps Hypertriglyceridemia Primary generalized (osteo)arthritis Gout Essential (primary) hypertension Surgical History Surgical History Hx of bilateral inguinal hernia repair Laparoscopic bilateral inguinal hernia repair with mesh, da Luis Eduardo assisted on 03/29/23 History of knee surgery Social History Social History Smoking packs per day: 1 Smoking cigarettes per day: 20.0 Years smoked: 25 Smoking pack-years: 25.00 Smoking status: Former smoker Tobacco type: cigarettes Smoking end date: 05/09/18 Alcohol intake: current Drinks per week: 2 Alcohol use details: SOCIALLY Substance use: never Substance use type: does not use Do You Feel Safe in your Home?: Yes Lack of Transportation: No Lack of Food: Never True Current Housing: I Have Housing Concerned About Future Housing: No Difficulty Paying Gas/Electric Bills: No Difficulty Paying for Meds: No Currently Unemployed: No Difficulty w/ Childcare or Family Care: No Living arrangements: with family Occupation/Education: occupation Gender identity (if verbalized by the patient): Male Sexual Orientation (if Verbalized by the Patient): Straight or Heterosexual Spiritual care concerns: No Anes - Eval Final PreProcedure Day of Procedure 11/28/24 11:19 Patient weight: obese Lungs: normal air movement Airway: Mallampati scale class II and special considerations (Missing lower R teeth. ) Neurological: alert and oriented Last oral intake: >/= 8 hours ASA classification: III Emergent: no Anesthetic plan: proceed Anesthesia type and monitoring: general GIVS and standard monitoring Results Review: All pre-operative results and documents have been reviewed as part of the pre-operative evaluation. HTN, hyperlipidemia, ex smoker quit 2019. Informed Consent: The patient's anesthetic plan and its attendant risks and benefits were discussed with the patient/family/POA. Questions were solicited and answers provided to the satisfaction of the patient/family/POA.
--- NOTE | 2024-11-28 11:36 | PM.HPGS ---
History of Present Illness History of Present Illness Consent: Risks, benefits, and alternatives have been discussed and questions answered. Patient agrees to proceed with procedure. Chief complaint: Esophageal obstruction Narrative: James Amaro is a 68 year old male who had food bolus 08/2024 and required urgent EGD, doing ok since and he is here for another egd to reassess if may need dilation Review of Systems Review of Systems: All systems reviewed & are unremarkable except as noted in HPI and below PMFSH Past Medical History Medical History (Updated 11/28/24 @ 11:37 by Thien Diamond MD) Dysphagia Personal history of colonic polyps Hypertriglyceridemia Primary generalized (osteo)arthritis Gout Essential (primary) hypertension Surgical History Surgical History Hx of bilateral inguinal hernia repair Laparoscopic bilateral inguinal hernia repair with mesh, da Luis Eduardo assisted on 03/29/23 History of knee surgery Social History Social History Smoking packs per day: 1 Smoking cigarettes per day: 20.0 Years smoked: 25 Smoking pack-years: 25.00 Smoking status: Former smoker Tobacco type: cigarettes Smoking end date: 05/09/18 Alcohol intake: current Drinks per week: 2 Alcohol use details: SOCIALLY Substance use: never Substance use type: does not use Do You Feel Safe in your Home?: Yes Lack of Transportation: No Lack of Food: Never True Current Housing: I Have Housing Concerned About Future Housing: No Difficulty Paying Gas/Electric Bills: No Difficulty Paying for Meds: No Currently Unemployed: No Difficulty w/ Childcare or Family Care: No Living arrangements: with family Occupation/Education: occupation Gender identity (if verbalized by the patient): Male Sexual Orientation (if Verbalized by the Patient): Straight or Heterosexual Spiritual care concerns: No Meds Home Medications and Allergies Home Medications ?Medication ?Instructions ?Recorded ?Confirmed ?Type uyuzbzjzhlar-jih-lqtwt acid-vit 1 tablet PO DAILY 02/02/23 11/28/24 History K-lycop 400 mcg-20 mcg-370 mcg tablet (Men's 50 Plus Multivitamin) allopurinol 300 mg tablet 450 mg (1.5 x 300 mg) PO DAILY 06/19/24 11/28/24 Rx #135 tabs colchicine 0.6 mg tablet 0.6 mg PO DAILY #90 tabs 08/30/24 11/28/24 Rx melatonin 5 mg chewable tablet 10 mg PO HS PRN sleep 08/30/24 11/14/24 History metoprolol tartrate 25 mg tablet 25 mg PO BID #180 tabs 08/30/24 11/28/24 Rx rosuvastatin 10 mg tablet 10 mg PO DAILY #100 tabs 09/03/24 11/28/24 Rx lisinopril 20 See Rx Instructions .Route 10/28/24 11/28/24 Rx mg-hydrochlorothiazide 25 mg tablet .COMPLEX #90 tabs Allergies Allergy/AdvReac Type Severity Reaction Status Date / Time No Known Allergies Allergy Verified 11/28/24 10:37 Vital Signs Vital Signs - 24 hr 11/28/24 10:38 Temperature 98.1 F Pulse Rate 61 Respiratory Rate 18 Blood Pressure 138/79 Pulse Oximetry 95 Oxygen Delivery Room Air Exam Const: General: comfortable and no acute distress HENMT: Face/Nose/Sinus: Normal nares present Eyes: General: appearance normal, both eyes and all related structures Neck: Neck: no JVD Resp: Auscultation: clear to auscultation bilaterally Cardio: Rate: regular rate Rhythm: regular rhythm GI: Inspection: non-distended GI Palp: Yes Soft to palpation Skin: General skin exam: normal color Neuro: Speech: normal speech Extrem: General: normal to inspection Psych: Mental Status: mental status grossly normal Assessment and Plan Assessment and plan (1) Dysphagia: Code(s): R13.10 - Dysphagia, unspecified Status: Acute Assessment and Plan: egd
--- NOTE | 2024-11-28 11:52 | S_PTH ---
PATIENT: James Amaro LOC: [facility]#:[id number] AGE/SX: 68/M ROOM: RE11/28/[address]: Thien Diamond MD : 1955 BED: DIS: 11/28/2024 SPEC #: [id number] RECD: 11/28/24 13:54 STATUS: JEFF REShahla #: [id number] COREEN: 11/28/24 11:[address]: Thien Diamond DEPT: [facility] Surgical RECD BY: Shira Yang ENTERED: 11/28/24 13:54 SP TYPE: Surgical OTHR DR: Russell Holden MD Tissues: A - Esophageal Biopsy B - Gastric Biopsy Procedures: Hematoxylin and Eosin Stain Gross and Microscopic Level 4
[2024-11-28 11:56] VITALS: BP 114/64; PULSE 55; RESP 19; O2SAT 99
[2024-11-28 12:06] VITALS: BP 108/66; PULSE 52; RESP 17; O2SAT 100
[2024-11-28 12:16] VITALS: BP 114/64; PULSE 54; RESP 19; O2SAT 100
== END 2024-11-28 12:30 | disposition home or self-care (01) ==
PROVIDERS: PCP Family Medicine; Referring Provider Internal Medicine Gastroenterology; Visit Provider Internal Medicine Gastroenterology
PROC: 0DJ08ZZ Inspection of Upper Intestinal Tract, Via Natural or Artificial Opening Endoscopic (ICD-10-PCS; CPT 43239; principal; 2024-11-28 14:00)
DX: R13.10 Dysphagia, unspecified (principal); K29.70 Gastritis, unspecified, without bleeding; Z87.891 Personal history of nicotine dependence; E66.9 Obesity, unspecified; Z68.31 Body mass index [BMI] 31.0-31.9, adult
CPT/HCPCS: 43239; 43450; 88305; J2003; J2704; J7120

== ENCOUNTER 2025-03-11 09:16 | Outpatient (CLI) | payer OTHER, SELFPAY ==
--- NOTE | ~2025-03-11 | XR_ITS ---
EXAMINATION: XR ankle RT min 3V, 03/11/2025 9:22 CDT HISTORY: Pain in right foot, gout in early 2024 COMPARISON: No comparisons available. Findings: No acute fracture or malalignment. No significant degenerative changes. Soft tissues unremarkable. Impression: No acute fracture or malalignment. Reviewed, dictated and finalized at location P. Impression: No acute fracture or malalignment.
--- NOTE | ~2025-03-11 | XR_ITS ---
EXAMINATION: XR foot RT min 3V, 03/11/2025 9:22 CDT HISTORY: Pain in right foot, gout early 2024 COMPARISON: No comparisons available. Findings: No acute fracture or malalignment. No significant degenerative changes. Soft tissues unremarkable. Impression: No acute fracture or malalignment. Reviewed, dictated and finalized at location P. Impression: No acute fracture or malalignment.
== END 2025-03-11 09:17 | disposition home or self-care (01) ==
LOC: GOSHIMG 09:16
PROVIDERS: PCP Family Medicine; Visit Provider Family Medicine
DX: M79.671 Pain in right foot (principal); M25.571 Pain in right ankle and joints of right foot
CPT/HCPCS: 73610; 73630